=== PATIENT | female | born 1990 | race Caucasian/White ===

== ENCOUNTER 2022-10-27 10:07 | Emergency (ER) | payer OTHER ==
[~2022-10-27] VITALS: Ht 162.6 cm; Wt 55.8 kg
[2022-10-27 10:29] VITALS: BP_SYST 125; PULSE 77; RESP 20; TEMP 98; O2SAT 100
[2022-10-27 10:39] LABS: BASOPHILS # (AUTO) 0.1 K/uL (0.0-0.2); BASOPHILS % (AUTO) 0.5 % (0.0-2.0); EOSINOPHILS # (AUTO) 0.1 K/uL (0.0-0.4); EOSINOPHILS % (AUTO) 0.4 % (0.0-4.0); HEMATOCRIT 37.6 % (36-48); HEMOGLOBIN 11.8 g/dL (12.0-16.0); LYMPHOCYTES # (AUTO) 1.5 K/uL (1.0-5.5); LYMPHOCYTES % (AUTO) 11.4 % (20.5-51.5); MEAN CORPUSCULAR HEMOGLOBIN 28 pg (27-31); MEAN CORPUSCULAR HGB CONC 31 % (32-36); MEAN CORPUSCULAR VOLUME 89 fL (79.0-98.0); MONOCYTES # (AUTO) 0.5 K/uL (0.0-1.0); MONOCYTES % (AUTO) 3.6 % (1.7-9.3); NEUTROPHILS # (AUTO) 11.4 K/uL (1.8-7.7); NEUTROPHILS % (AUTO) 84.1 % (40.0-70.0); PLATELET COUNT (AUTO) 253 K/uL (130-430); RED BLOOD CELL COUNT(AUTO) 4.21 MIL/uL (4.2-6.2); RED CELL DISTRIBUTION WIDTH 13.9 % (9.0-15.0); WHITE BLOOD COUNT (AUTO) 13.6 K/uL (4.8-10.8)
[2022-10-27 10:58] LABS: CALCIUM 8.4 mg/dL (8.4-11.0); CREATININE 0.65 mg/dL (0.55-1.30); PROTHROMBIN TIME 10.5 SECS (9.5-12.5)
[2022-10-27 11:03] LABS: ALBUMIN 3.8 g/dL (3.4-4.8); TOTAL BILIRUBIN 0.3 mg/dL (0.0-1.0)
== END 2022-10-27 19:18 | disposition home or self-care (01) ==
LOC: SED 10:07
DX: O20.9 Hemorrhage in early pregnancy, unspecified (principal); Z3A.01 Less than 8 weeks gestation of pregnancy; Z79.899 Other long term (current) drug therapy
CPT/HCPCS: 36415; 76802; 80053; 84702; 85025; 85610-TC; 85730-TC; 86900; 86901; 99284

== ENCOUNTER 2022-10-29 09:42 | Emergency (ER) | payer OTHER ==
[~2022-10-29] VITALS: Ht 157.5 cm; Wt 64.4 kg
[2022-10-29 09:55] VITALS: BP_SYST 124; PULSE 66; RESP 18; TEMP 98.3; O2SAT 99
--- NOTE | 2022-10-29 10:05 | NUR ---
Pt brought by self,ambulatory, A&Ox4, pt presents to ER to repeat blood work due to 5 weeks with vaginal bleeding, skin pink and warm , cap refill <3, mild cramping 3/10, will cont to monitor.
--- NOTE | 2022-10-29 10:15 | NUR ---
Dr Noland evaluating patient in the triage room
[2022-10-29 11:36] VITALS: BP_SYST 124; PULSE 66; RESP 18; TEMP 98.3; O2SAT 99
--- NOTE | 2022-10-29 11:36 | NUR ---
Patient given written and verbal discharge instructions and verbalizes understanding. ER MD discussed with patient the results and treatment provided. Patient in stable condition. ID arm band removed. No Rx given. Patient educated on pain management and to follow up with PMD. Pain Scale 2/10. Opportunity for questions provided and answered. Medication side effect fact sheet provided.
== END 2022-10-29 11:36 | disposition home or self-care (01) ==
LOC: SED 09:42
DX: O03.9 Complete or unspecified spontaneous abortion without complication (principal); O26.891 Other specified pregnancy related conditions, first trimester; Z3A.01 Less than 8 weeks gestation of pregnancy; Z79.899 Other long term (current) drug therapy
CPT/HCPCS: 36415; 84702; 86886; 86900; 86901; 99283